=== PATIENT | female | born 1995 | race Two or more races ===

== ENCOUNTER 2020-09-21 07:00 | Inpatient (IN) | payer OTHER ==
[~2020-09-21] VITALS: Ht 154.9 cm; Wt 69.9 kg
[2020-09-22] MEDS ORDERED: SYNTHROID125 MCG PO (03:16)
[2020-09-22] MEDS ORDERED: PRENATAL TABLE1 EAC1 PO (03:16)
[2020-09-22] MEDS ORDERED: FOLIC ACID0.8 M1 PO (03:16)
== END 2020-09-24 13:02 | disposition home or self-care (01) | DRG 807 ==
LOC: OB/GYN 09-22 06:26 → LDR 09-22 06:26 → OB/GYN 09-22 12:04 → SURH 10-01 15:00
PROVIDERS: ADMIT Obstetrics & Gynecology; ATTEND Obstetrics & Gynecology
PROC: 10E0XZZ Delivery of Products of Conception, External Approach (ICD-10-PCS; principal; 2020-09-22)
PROC: 0W8NXZZ Division of Female Perineum, External Approach (ICD-10-PCS; 2020-09-22)
PROC: 4A1HXFZ Monitoring of Products of Conception, Cardiac Rhythm, External Approach (ICD-10-PCS; 2020-09-22)
DX: O99.824 Streptococcus B carrier state complicating childbirth (principal); Z37.0 Single live birth; Z3A.38 38 weeks gestation of pregnancy

== ENCOUNTER → 2020-09-22 | Outpatient (CLI) | payer OTHER ==
[~2020-09-22] MED LIST: FOLIC ACID0.8 M1 PO; PRENATAL TABLE1 EAC1 PO; SYNTHROID125 MCG PO
== END | disposition still patient (30) ==
LOC: OBS/DEL 02:53
PROVIDERS: ATTEND Obstetrics & Gynecology
DX: O47.1 False labor at or after 37 completed weeks of gestation (principal); Z20.828 Contact with and (suspected) exposure to other viral communicable diseases

== ENCOUNTER 2022-12-20 05:24 | Day surgery (SDC) | payer OTHER | END 2022-12-20 14:35 | disposition home or self-care (01) | LOC: CIR.AMB 05:24 → U 05:24 → CIR.AMB 07:00 | PROVIDERS: ATTEND Obstetrics & Gynecology | DX: R87.612 Low grade squamous intraepithelial lesion on cytologic smear of cervix (LGSIL) (principal); N72 Inflammatory disease of cervix uteri; Z20.822 Contact with and (suspected) exposure to COVID-19 ==